=== PATIENT | male | born 1945 | race Hispanic/Latino ===

== ENCOUNTER 2017-09-11 07:47 | Observation (INO) | payer OTHER ==
[2017-09-07 13:12] VITALS: BP 143/70
[2017-09-07 13:32] LABS: BASOPHILS % (AUTO) 0.7 % (0.0-5.0); EOSINOPHILS % (AUTO) 2.6 % (0.0-8.0); LYMPHOCYTES % (AUTO) 21.7 % (21.0-51.0); MEAN CORPUSCULAR HEMOGLOBIN 30.8 pg (27.0-33.0); MEAN CORPUSCULAR HGB CONC 33.9 g/dL (32.0-36.0); MEAN CORPUSCULAR VOLUME 90.7 fL (79-99); NUCLEATED RED BLOOD CELLS 0.1 % (0.0-0.19); PLATELET COUNT (AUTO) 297 K/uL (130-400); RED BLOOD CELL COUNT(AUTO) 4.19 MIL/uL (4.50-6.20); WHITE BLOOD COUNT (AUTO) 6.1 K/uL (4.8-10.8)
[2017-09-07 13:41] LABS: CREATININE 1.4 mg/dL (0.5-1.5); POTASSIUM 4.9 mmol/L (3.5-5.1)
[2017-09-07 14:14] LABS: INR 1.04 (0.85-1.15); PARTIAL THROMBOPLASTIN TIME 28.5 SEC (26.3-35.5); PROTHROMBIN TIME 10.9 SEC (9.6-11.6)
[2017-09-11] VITALS (11 sets, daily range): BP systolic 96–133; BP diastolic 60–75
[~2017-09-11] VITALS: Ht 165.1 cm; Wt 87.2 kg
[~2017-09-11 07:47] MED LIST: ASPI-1181 PO; CLOP75TA32 PO; HYDR-4060 PO; METF-526 PO; METO50TA18 PO; POTA10TA11 PO; SIMV40TA5 PO; SODIUM CHLORIDE 0.9% 500ML 500 ML IV SCH; SPIR25TA PO; VALS1TAB81 PO; XALA2.5OS OU
[2017-09-11] MEDS ORDERED: SODIUM CHLORIDE 0.9% 1000ML 1,000 ML IV ONE (08:04)
[2017-09-11] MEDS ORDERED: CEFAZOLIN 1GM / D5W 50ML 100 ML ONE (12:53)
[2017-09-11] MEDS ORDERED: BUPIVACAINE/PF 0.25% 30ML VIAL IJ ONE (12:53)
[2017-09-11] MEDS ORDERED: LIDOCAINE HCL 1% MDV 50ML VIAL ONE (12:54)
[2017-09-11] MEDS ORDERED: ISOVUE-300 100 ML VIAL IV ONE (12:54)
[2017-09-11] MEDS ORDERED: CEFAZOLIN 1GM / D5W 50ML 50 ML ONE (12:55)
[2017-09-11] MEDS ORDERED: MIDAZOLAM HCL 1 MG/ML 2ML VIAL ONE ×3 (12:56→14:19)
[2017-09-11] MEDS ORDERED: MEPERIDINE-PF 25 MG/ML SYG ONE ×3 (12:56→14:19)
[2017-09-11] MEDS ORDERED: OCTYL 2-CYANOACRYLATE 1 EACH TP ONE (15:02)
[2017-09-11] MEDS ORDERED: GLUCAGON 1MG KIT 1 MG ML IM PRN (15:30)
[2017-09-11] MEDS ORDERED: DEXTROSE 50%-WATER 50 ML DISP.SYRIN IV PRN (15:30)
[2017-09-11] MEDS ORDERED: ONDANSETRON HCL 4 MG/2 ML VIAL IV PRN (15:30)
[2017-09-11] MEDS ORDERED: ACETAMINOPHEN 325 MG TAB PO PRN ×2 (15:30)
[2017-09-11] MEDS ORDERED: DOXY100C2 PO (15:39)
[2017-09-11] MEDS ORDERED: METO100T14 PO (15:39)
[2017-09-11] MEDS ORDERED: METO50TA18 PO (15:39)
[2017-09-11] MEDS: INSULIN HUMULIN R 100 UNIT/ML 3ML SQ SCH ×2 (16:30→21:00)
[2017-09-11] MEDS: METFORMIN HCL 500 MG TABLET PO SCH (17:00)
[2017-09-11] MEDS ORDERED: LATANOPROST 2.5 ML DROPS OU SCH (21:00)
[2017-09-11] MEDS ORDERED: CLOPIDOGREL BISULFATE 75 MG TAB PO SCH (21:00)
[2017-09-11] MEDS ORDERED: METOPROLOL TARTRATE 50 MG TAB PO SCH (21:00)
[2017-09-11] MEDS: SPIRONOLACTONE 25 MG TAB PO SCH (21:00)
[2017-09-11] MEDS ORDERED: ATORVASTATIN CALCIUM 20 MG TABLET PO SCH (21:00)
[2017-09-11] MEDS ORDERED: CEFAZOLIN 1GM / D5W 50ML 50 ML IV SCH (22:00)
[2017-09-11] MEDS: CEFAZOLIN SODIUM 1 GM VIAL IVP SCH (22:31)
[2017-09-11] MEDS: HYDROCODONE/ACETAMINOPHEN 5/325 MG TAB PO PRN (23:10)
[2017-09-12 03:45] VITALS: BP 129/64
[2017-09-12] MEDS: HYDROCODONE/ACETAMINOPHEN 5/325 MG TAB PO PRN (05:00)
[2017-09-12] MEDS: CEFAZOLIN SODIUM 1 GM VIAL IVP SCH (05:16)
[2017-09-12] MEDS: SPIRONOLACTONE 25 MG TAB PO SCH (05:16)
[2017-09-12] MEDS: INSULIN HUMULIN R 100 UNIT/ML 3ML SQ SCH (07:30)
[2017-09-12] MEDS: METFORMIN HCL 500 MG TABLET PO SCH (07:50)
[2017-09-12 07:55] VITALS: BP 118/57
[2017-09-12] MEDS ORDERED: WATER FOR INJECTION,STERILE 20 ML VIAL IJ ONE (08:00)
[2017-09-12] MEDS ORDERED: CEFAZOLIN SODIUM 1 GM VIAL IVP ONE (08:00)
[2017-09-12] MEDS ORDERED: METOPROLOL TARTRATE 50 MG TAB PO SCH (09:00)
[2017-09-12] MEDS ORDERED: ASPIRIN 81 MG EC TAB PO SCH (09:00)
[2017-09-12] MEDS ORDERED: VALSARTAN HCTZ PO SCH (09:00)
== END 2017-09-12 10:43 | disposition home or self-care (01) ==
LOC: DAH 07:47 → 2DH 07:48 → DAH 07:48
PROVIDERS: ADMIT Internal Medicine Cardiovascular Disease; ATTEND Internal Medicine Cardiovascular Disease
DX: I25.10 Atherosclerotic heart disease of native coronary artery without angina pectoris (principal); I25.5 Ischemic cardiomyopathy; M54.17 Radiculopathy, lumbosacral region; I25.2 Old myocardial infarction; I11.0 Hypertensive heart disease with heart failure; I50.42 Chronic combined systolic (congestive) and diastolic (congestive) heart failure; I34.0 Nonrheumatic mitral (valve) insufficiency; Z95.5 Presence of coronary angioplasty implant and graft; Z95.1 Presence of aortocoronary bypass graft; Z79.82 Long term (current) use of aspirin; Z79.899 Other long term (current) drug therapy; Z95.810 Presence of automatic (implantable) cardiac defibrillator
CPT/HCPCS: 33225; 33249; 36415; 71046; 80048; 82948 ×3; 85025; 85610; 85730; 93005; 96374; 96376; A4218 ×2; A4606; C1769 ×2; C1882; C1894; C1895 ×2; C1900; G0378 ×27; J0690 ×4; J2175 ×2; J2250 ×2; J3490 ×2; J7030; Q9967; 99152; 99153

== ENCOUNTER 2023-12-07 06:58 | Day surgery (SDC) | payer OTHER ==
[2023-12-05 09:16] LABS: BASOPHILS # (AUTO) 0.04 K/uL (0.00-0.20); BASOPHILS % (AUTO) 0.6 % (0.0-5.0); EOSINOPHILS # (AUTO) 0.33 K/uL (0.00-0.70); EOSINOPHILS % (AUTO) 5.3 % (0.0-8.0); HEMATOCRIT 42.9 % (42-54); IMMATURE GRANULOCYTE ABSOLUTE 0.02 K/uL (0-1); LYMPHOCYTES # (AUTO) 1.5 K/uL (1.0-4.8); LYMPHOCYTES % (AUTO) 23.7 % (21.0-51.0); MEAN CORPUSCULAR HEMOGLOBIN 29.6 pg (27.0-33.0); MEAN CORPUSCULAR HGB CONC 32.6 g/dL (32.0-36.0); MEAN CORPUSCULAR VOLUME 90.7 fL (79-99); MONOCYTES # (AUTO) 0.6 K/uL (0.1-1.0); MONOCYTES % (AUTO) 8.9 % (3.0-13.0); NEUTROPHILS # (AUTO) 3.8 K/uL (1.8-7.7); NEUTROPHILS % (AUTO) 61.2 % (40.0-77.0); PLATELET COUNT (AUTO) 280 K/uL (130-400); RED BLOOD CELL COUNT(AUTO) 4.73 MIL/uL (4.50-6.20); RED CELL DISTRIBUTION WIDTH 13.1 % (11.0-15.5); WHITE BLOOD COUNT (AUTO) 6.2 K/uL (4.8-10.8)
[2023-12-05 09:24] LABS: CREATININE 1.7 mg/dL (0.5-1.3); POTASSIUM 5.2 mmol/L (3.5-5.1)
[2023-12-05 09:26] LABS: INR 0.97 (0.85-1.15); PROTHROMBIN TIME 11.5 SEC (9.6-11.6)
[2023-12-05 09:27] LABS: PARTIAL THROMBOPLASTIN TIME 31.3 SEC (26.3-35.5)
[2023-12-05 09:53] VITALS: BP 160/74; PULSE 60; RESP 18
[~2023-12-07] VITALS: Ht 165.1 cm; Wt 90.3 kg
[2023-12-07] VITALS (12 sets, daily range): BP systolic 104–140; BP diastolic 42–66; PULSE 48–71; RESP 14–16
[~2023-12-07 06:58] MED LIST changes: +ASHWAGANDHA PO; -ASPI-1181 PO; +CHOL-34 PO; +CYAN50009 PO; -HYDR-4060 PO; -METF-526 PO; +METO100T14 PO; -METO50TA18 PO; -POTA10TA11 PO; +SIMV-46 PO; -SIMV40TA5 PO; -SODIUM CHLORIDE 0.9% 500ML 500 ML IV SCH; -SPIR25TA PO; +SPIR25TA6 PO; -VALS1TAB81 PO
[2023-12-07] MEDS: 0.9%NACL 1000ML 1,000 ML IV ONE (08:00)
[2023-12-07] MEDS ORDERED: MIDAZOLAM HCL 1 MG/ML 2ML VIAL ONE ×2 (09:27→10:09)
[2023-12-07] MEDS ORDERED: CEFAZOLIN SODIUM 1 GM VIAL ONE (09:27)
[2023-12-07] MEDS ORDERED: LIDOCAINE HCL 1% MDV 50ML VIAL ONE (09:27)
[2023-12-07] MEDS ORDERED: MEPERIDINE-PF 25 MG/ML SYG ONE ×2 (09:27→10:09)
[2023-12-07] MEDS ORDERED: BUPIVACAINE/PF 0.25% 30ML VIAL IJ ONE (09:28)
[2023-12-07] MEDS ORDERED: ACETAMINOPHEN WITH CODEINE 1 TAB TAB PO PRN ×2 (11:00)
[2023-12-07] MEDS ORDERED: CEFAZOLIN SODIUM 1 GM VIAL IVPB SCH (11:30)
== END 2023-12-07 15:55 | disposition home or self-care (01) ==
LOC: DAH 06:58
PROVIDERS: ATTEND Internal Medicine Cardiovascular Disease
DX: Z45.02 Encounter for adjustment and management of automatic implantable cardiac defibrillator (principal); I25.5 Ischemic cardiomyopathy; I11.0 Hypertensive heart disease with heart failure; I50.42 Chronic combined systolic (congestive) and diastolic (congestive) heart failure; E11.9 Type 2 diabetes mellitus without complications; E78.5 Hyperlipidemia, unspecified; Z79.899 Other long term (current) drug therapy; Z79.01 Long term (current) use of anticoagulants; Z95.1 Presence of aortocoronary bypass graft; Z82.49 Family history of ischemic heart disease and other diseases of the circulatory system
CPT/HCPCS: 80048; 85025; 85610; 85730; 36415; 93005; 33264; 82948 ×2; C1882; J0690 ×2; J7030; J0665; J2250 ×2; J2175 ×2; J3490; A4215; A4222; A4221; A4663; A4216; A4606; A4223 ×3; 96360; 96361; 99156; 99157